=== PATIENT | female | born 1965 | race Caucasian/White ===

== ENCOUNTER 2017-10-31 10:41 | Emergency (ER) | payer OTHER ==
[~2017-10-31] VITALS: Ht 167.6 cm; Wt 117.9 kg
== END 2017-10-31 11:39 | disposition home or self-care (01) ==
LOC: ER 10:41
DX: L02.216 Cutaneous abscess of umbilicus (principal)

== ENCOUNTER → 2017-11-03 | Outpatient (CLI) | payer OTHER | END | disposition home or self-care (01) | LOC: LAB 17:32 | DX: L03.316 Cellulitis of umbilicus (principal); L02.818 Cutaneous abscess of other sites ==

== ENCOUNTER 2017-11-05 08:25 | Outpatient (CLI) | payer OTHER | END 2017-11-05 08:28 | disposition home or self-care (01) | LOC: SONOGRAMA 08:25 | DX: L03.316 Cellulitis of umbilicus (principal); K42.9 Umbilical hernia without obstruction or gangrene; L02.818 Cutaneous abscess of other sites ==

== ENCOUNTER 2017-11-23 16:37 | Emergency (ER) | payer OTHER ==
[~2017-11-23] VITALS: Ht 165.1 cm; Wt 90.7 kg
== END 2017-11-23 20:07 | disposition home or self-care (01) ==
LOC: ER 16:37
DX: L08.82 Omphalitis not of newborn (principal)

== ENCOUNTER 2022-04-07 21:52 | Emergency (ER) | payer OTHER ==
[~2022-04-07] VITALS: Ht 170.2 cm; Wt 106.6 kg
== END 2022-04-07 22:18 | disposition home or self-care (01) ==
LOC: ER 21:52
DX: S90.561A Insect bite (nonvenomous), right ankle, initial encounter (principal); W57.XXXA Bitten or stung by nonvenomous insect and other nonvenomous arthropods, initial encounter; Y93.9 Activity, unspecified; Y92.9 Unspecified place or not applicable; Y99.9 Unspecified external cause status; Z88.0 Allergy status to penicillin